=== PATIENT | male | born 1995 | race Caucasian/White ===

== ENCOUNTER 2020-02-12 20:31 | Emergency (ER) | payer BC ==
[~2020-02-12] VITALS: Ht 177.8 cm; Wt 103.2 kg
[2020-02-12 20:36] VITALS: BP 167/82; Ht 177.8 cm; Wt 103.2 kg
[2020-02-12] MEDS ORDERED: VIBRAMYCIN 100100 MG PO (21:02)
== END 2020-02-12 21:09 | disposition home or self-care (01) ==
LOC: D.ER 20:31
DX: L03.116 Cellulitis of left lower limb (principal); M79.605 Pain in left leg